=== PATIENT | female | born 1990 | race African-American/Black ===

== ENCOUNTER 2016-12-13 12:30 | Emergency (ER) | payer SELFPAY ==
[~2016-12-13] VITALS: Ht 170.2 cm; Wt 100.0 kg
[~2016-12-13 12:30] MED LIST: RANI150 PO; SUCR1TAB6 PO; Z.0.NO CURRENT MEDS
[2016-12-13 12:31] VITALS: BP 128/71; PULSE 78; RESP 16; TEMP 98.7; O2SAT 100
--- NOTE | 2016-12-13 12:44 | PD ---
Physical Exam Date Seen by Provider: Dec 13, 2016 Time Seen by Provider: 12:42 Narrative 26 YOBF WITH 3 DAYS OF LBP INTO L LEG. WORKS AT [employer]. NO TRAUMA OR RECENT ILLNESS. 8/10 PAIN. LMP 1 MONTH VS REVIEWED AWAITING BED PLACEMENT Data Data Last Documented VS Vital Signs Date Time Temp Pulse Resp B/P Pulse Ox O2 Delivery O2 Flow Rate FiO2 12/13/16 12:31 98.7 78 16 128/71 100 Room Air MDM Supervised Visit with FILIBERTO: Jordan Matos Dec 13, 2016 12:44
[2016-12-13] MEDS ORDERED: IBUP-232 PO (13:09)
[2016-12-13] MEDS ORDERED: NON-500T13 PO (13:09)
[2016-12-13] MEDS ORDERED: CYCL1TAB29 PO (13:09)
[2016-12-13] MEDS ORDERED: ACETAMINOPHEN 500 MG CPLT PO ONE (13:15)
[2016-12-13] MEDS ORDERED: IBUPROFEN 600 MG TAB PO ONE (13:15)
--- NOTE | 2016-12-13 13:15 | PD ---
HPI Chief Complaint: Musculoskeletal Complaint Time Seen by Provider: 13:09 Travel History International Travel<30 days: No Contact w/Intl Traveler<30days: No Traveled to known affect area: No History of Present Illness HPI 26-year-old Afro-[place] female presents emergency Department with 3 day history of worsening left anterior thigh/groin pain, which is worse with movement and ambulation. Patient denies back pain, or lateral hip pain. Patient denies weakness but has pain only. She has no pain in the lower extremity or swelling. 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 She has been taking some ibuprofen [id number] without much improvement. She states it is worse today which is why she is here. She denies fever, chills, vaginal symptoms, urinary symptoms, diarrhea, or constipation. Denies rash. She has no known drug allergies. PFSH Past Medical History Asthma: No Autoimmune Disease: No Blood Disorders: No Anxiety: No Depression: No Cardiovascular Problems: No Cystic Fibrosis: No Genitourinary: No Musculoskeletal: No Neurologic: No Psychiatric: No Respiratory: No Immunizations Current: Yes Sickle Cell Disease: No Sleep Apnea: No ?: Not LMP: 11/09/16 Past Surgical History Tonsillectomy: Yes Social History Alcohol Use: No Tobacco Use: No Substance Use: No Allergies-Medications (Allergen,Severity, Reaction): Coded Allergies: No Known Allergies (Verified , 12/17/08) Reported Meds & Prescriptions Reported Meds & Active Scripts Active Zantac (Ranitidine HCl) 150 Mg Tab 1 Tab PO BID 5 Days Carafate (Sucralfate) 1 Gm Tab 1 Tab PO QID 5 Days Reported No Current Meds (Miscellaneous Medication) Misc Review of Systems General / Constitutional: No: Fever Eyes: No: Visual changes HENT: No: Headaches Cardiovascular: No: Chest Pain or Discomfort Respiratory: No: Shortness of Breath Gastrointestinal: No: Abdominal Pain Genitourinary: No: Dysuria Musculoskeletal: Positive: Myalgias, Limited ROM, Pain (see history present illness.) Skin: No Rash Neurologic: No: Weakness Psychiatric: No: Depression Endocrine: No: Polydipsia Hematologic/Lymphatic: No: Easy Bruising Physical Exam Narrative GENERAL: Patient appears no distress. SKIN: Warm and dry. Normal color. Normal turgor. No rash. HEAD: Atraumatic. Normocephalic. EYES: Pupils equal and round. No scleral icterus. No injection or drainage. ENT: No nasal bleeding or discharge. Mucous membranes pink and moist. Pharynx is clear. Airway is patent NECK: Trachea midline. Supple and nontender. CARDIOVASCULAR: Regular rate and rhythm. RESPIRATORY: No accessory muscle use. Clear to auscultation. Breath sounds equal bilaterally. GASTROINTESTINAL: Abdomen soft, non-tender, nondistended. Hepatic and splenic margins not palpable. No hernias. No CVA tenderness. MUSCULOSKELETAL: Extremities without clubbing, cyanosis, or edema. No obvious deformities. Patient has negative Homans sign on the left. No calf tenderness with palpation. No distal thigh tenderness with palpation. Patient's pain is located mainly in the right inguinal groin and anterior proximal thigh. Pain is accentuated by hip flexion and rotation consistent with a "groin pull". Patient has no hip tenderness with palpation of the lateral or posterior aspect. NEUROLOGICAL: Awake and alert. No obvious cranial nerve deficits. Motor grossly within normal limits. Five out of 5 muscle strength in the arms and legs. Normal speech. PSYCHIATRIC: Appropriate mood and affect; insight and judgment normal. Data Data Last Documented VS Vital Signs Date Time Temp Pulse Resp B/P Pulse Ox O2 Delivery O2 Flow Rate FiO2 12/13/16 12:31 98.7 78 16 128/71 100 Room Air Orders Ibuprofen (Motrin) (12/13/16 13:15) Acetaminophen (Tylenol) (12/13/16 13:15) [facility] Medical Decision Making Medical Screen Exam Complete: Yes Emergency Medical Condition: Yes Differential Diagnosis Left anterior hip strain. Groin pull. Muscle spasm. Narrative Course Patient is given 600 mg ibuprofen by mouth now. Patient is given thousand milligrams of acetaminophen by mouth now. Patient will be treated with ibuprofen 600 mg 4 times a day #40. Patient also given acetaminophen 500 mg she states 2 tabs every 6 hours when necessary #60. Patient is given Flexeril 10 mg up to 3 times daily when necessary muscle spasm #15. Work note is given with restrictions on lifting for one week. Patient is to use heat followed by ice and gentle stretching as discussed. Patient should follow-up with local primary care or return to emergency Department with worsening symptoms if necessary. Diagnosis Primary Impression: Strain of muscle of right groin region Referrals: [facility] Patient Instructions: General Instructions, Groin Strain (ED) Departure Forms: Work Release Enter return to work date: Dec 14, 2016 Special Instructions: No lifting >20 pounds or Squatting for 7 days. Additional Instructions: Patient will be treated with ibuprofen 600 mg 4 times a day #40. Patient also given acetaminophen 500 mg she states 2 tabs every 6 hours when necessary #60. Patient is given Flexeril 10 mg up to 3 times daily when necessary muscle spasm #15. Work note is given with restrictions on lifting for one week. Patient is to use heat followed by ice and gentle stretching as discussed. Patient should follow-up with local primary care or return to emergency Department with worsening symptoms if necessary. Med/Other Pt SpecificInfo: Prescription(s) given Scripts Ibuprofen 600 Mg [id number] Mg PO Q6H PRN (Pain/Inflammation) #40 TAB Prov:Tom Ritter MD 12/13/16 Cyclobenzaprine (Flexeril)10 Mg Tab10 Mg PO TID #15 TAB Prov:Tom Ritter MD 12/13/16 Acetaminophen (Non-Aspirin Pain Relief ES)500 Mg Tab1,000 Mg PO Q6HR PRN (PAIN) #60 TAB Prov:Tom Ritter MD 12/13/16 Disposition: 01 DISCHARGE HOME Condition: Stable Jl Torres Dec 13, 2016 13:15
[2016-12-13 16:29] VITALS: RESP 4
== END 2016-12-13 13:39 | disposition home or self-care (01) ==
LOC: NEPK 12:30
DX: S76.912A Strain of unspecified muscles, fascia and tendons at thigh level, left thigh, initial encounter (principal); X50.0XXA Overexertion from strenuous movement or load, initial encounter; X50.9XXA Other and unspecified overexertion or strenuous movements or postures, initial encounter
CPT/HCPCS: 99283